=== PATIENT | male | born 1950 | race Caucasian/White ===

== ENCOUNTER 2017-10-13 06:01 | Day surgery (SDC) | payer OTHER ==
[2017-10-10 10:49] VITALS: BMI 29.5
--- NOTE | 2017-10-13 00:05 | HP ---
HISTORY OF PRESENT ILLNESS: Mr. Ryan is a 67-year-old gentleman presenting for evaluation of 20-30 y ears' worth of left-sided interscapular pain and posterior neck pains consistent with a C4 radiculopa thy. He has an [facility] performed last year that revealed significant left-sided foraminal st enosis at C3-C4 that would fit his symptoms well. PAST MEDICAL HISTORY: Significant for chronic back pain, gastroesophageal reflux disease. CURRENT MEDICATIONS: Vitamin B12, naproxen, ranitidine, and sodium chloride. PAST SURGICAL HISTORY: Total knee replacement, multiple knee arthroscopies. ALLERGIES: ZOLOFT. PHYSICAL EXAMINATION: NEUROLOGIC: Patient is alert and oriented x3. Gait is normal, no ataxia. Upper extremity motor exa m is normal. EXTREMITIES: He does have restricted range of motion in the neck. ASSESSMENT: Cervical radiculopathy. PLAN: Dr. Pandya met with the patient, reviewed imaging and advocated for a C3-4 ACDF. He explained to the patient the risks, benefits, alternatives of the procedure. The patient expressed understandi ng and would like to move forward with surgery as discussed. I do believe the patient is mentally co mpetent and capable of making medical decisions for himself and we will move forward with surgery as planned.
[2017-10-13] MEDS ORDERED: Thrombin 5000 UNITS/5 ML VIAL ONE (08:39)
[2017-10-13] MEDS ORDERED: CEFAZOLIN/Water 2 GM/20 ML SYRINGE ONE ×2 (08:48→12:26)
[2017-10-13] MEDS ORDERED: Fentanyl 100 MCG/2 ML VIAL ONE ×2 (09:01→10:36)
[2017-10-13] MEDS ORDERED: Ondansetron HCl/PF 4 MG/2 ML Vial ONE (09:25)
[2017-10-13] MEDS ORDERED: PROPOFOL 200 MG/20 ML VIAL ONE (09:25)
[2017-10-13] MEDS ORDERED: Lidocaine 1% PF 5 ML VIAL ONE ×2 (09:25)
[2017-10-13] MEDS ORDERED: Dexamethasone 20 MG/5 ML VIAL ONE (09:25)
[2017-10-13] MEDS ORDERED: Tamsulosin HCl 0.4 MG CAP ONE (10:31)
[2017-10-13] MEDS ORDERED: Ketorolac Tromethamine 30 MG/ML VIAL ONE (10:41)
--- NOTE | 2017-10-14 10:02 | OP ---
DATE OF PROCEDURE: 10/15/2017 SURGEON: Arie Pandya M.D. ECHOCARDIOGRAPHY TECHNOLOGIST: Carlo Love PA-C. INDICATION: Pain. DIAGNOSES: Cervical radiculopathy and cervical stenosis. PROCEDURE: Anterior cervical discectomy and fusion C3-4. TECHNIQUE: The patient was brought into the operating room and placed under general anesthesia. He was placed on the table in a supine position. A transverse incision was planned over the upper aspec t of the neck on the right. After prepping and draping and after an appropriate operative pause, the incision was created. The underlying platysma muscles identified and incised. A blunt tissue plane anterior to the sternocleidomastoid muscle was used to gain access to the prevertebral space. An an terior cervical diskectomy was then performed after placing self-retaining retractors. Disk material as well as anterior and posterior osteophytes were removed until the C3-C4 disc space was removed. After decompressing this segment interbody graft was placed, packed with allograft and autograft mate rial. An anterior cervical plate was then fashioned to the front of the spine and secured with 4 scr ews. Midline and lateral structures were then inspected and found to be free from significant trauma . The wound was irrigated. Hemostasis was maintained throughout. The wound was then closed in paco omic layers and a pressure dressing was applied. There were no known procedural complications.
== END 2017-10-13 15:10 | disposition home or self-care (01) ==
LOC: SDC 06:01
PROVIDERS: ATTEND Neurological Surgery
PROC: 0RG1070 Fusion of Cervical Vertebral Joint with Autologous Tissue Substitute, Anterior Approach, Anterior Column, Open Approach (ICD-10-PCS; principal; 2017-10-13)
PROC: 0RB30ZZ Excision of Cervical Vertebral Disc, Open Approach (ICD-10-PCS; principal; 2017-10-13)
PROC: 0RG10J0 Fusion of Cervical Vertebral Joint with Synthetic Substitute, Anterior Approach, Anterior Column, Open Approach (ICD-10-PCS; principal; 2017-10-13)
DX: M48.02 Spinal stenosis, cervical region (principal); M54.12 Radiculopathy, cervical region; G89.29 Other chronic pain; K21.9 Gastro-esophageal reflux disease without esophagitis; Z79.899 Other long term (current) drug therapy; Z88.8 Allergy status to other drugs, medicaments and biological substances
CPT/HCPCS: 76001; 96374; C1713; C1776; J0131; J1100; J1885; J2001; J2405; J2704; J3010

== ENCOUNTER 2024-11-02 11:09 | Outpatient (CLI) | payer OTHER, MEDICARE | END 2024-11-02 11:10 | disposition home or self-care (01) | LOC: RAD 11:09 | PROVIDERS: ATTEND Student in an Organized Health Care Education/Training Program | DX: C34.31 Malignant neoplasm of lower lobe, right bronchus or lung (principal); J90 Pleural effusion, not elsewhere classified; J98.11 Atelectasis; Q79.1 Other congenital malformations of diaphragm | CPT/HCPCS: 71046 ==